=== PATIENT | female | born 1950 | race Caucasian/White ===

== ENCOUNTER 2020-11-11 23:05 | Emergency (ER) | payer MEDICARE ==
[2020-11-11 23:34] VITALS: TEMP 97.9; BMI 28.5
[2020-11-11 23:37] LABS: BASO % 3.4 % (0-2.0); EOS % 1.1 % (0-4.5); HEMATOCRIT 39.9 % (32.4-45.2); HEMOGLOBIN 13.6 GM/dl (10.7-15.3); LYMPH % 20.1 % (8-40); MCH 30.5 pg (25.7-33.7); MCHC 34.1 g/dl (32.0-36.0); MEAN CELL VOLUME 89.6 fl (80-96); MEAN PLT VOLUME 7.7 fl (7.5-11.1); MONO % 6.3 % (3.8-10.2); NEUT % 69.1 % (42.8-82.8); PLATELET COUNT 410 10^3/uL (134-434); RBC 4.45 M/mm3 (3.60-5.2); RDW 12.2 % (11.6-15.6); WHITE BLOOD COUNT 11.6 K/mm3 (4.0-10.8)
[2020-11-11 23:51] LABS: INR 1.03 (0.82-1.09); PROTHROMBIN TIME (PATIENT) 11.5 SEC (10.2-13.0)
[2020-11-12 01:24] LABS: CHLORIDE 105 mmol/L (98-107); SODIUM 140 mmol/L (136-145)
[2020-11-12 01:26] LABS: CALCIUM 9.2 mg/dL (8.5-10.1)
[2020-11-12 01:27] LABS: ALBUMIN 4.4 g/dl (3.4-5.0); ANION GAP 7 MMOL/L (8-16); BLOOD UREA NITROGEN 18.6 mg/dL (7-18); CO2 28 mmol/L (21-32); GLUCOSE,RANDOM 128 mg/dL (74-106)
[2020-11-12 01:30] LABS: CREATININE 0.8 mg/dL (0.55-1.3); SGOT/AST 12 U/L (15-37); SGPT/ALT 27 U/L (13-61)
[2020-11-12 01:32] LABS: BILIRUBIN,TOTAL 0.2 mg/dL (0.2-1); TOT PROT 8.5 g/dl (6.4-8.2)
[2020-11-12 01:33] LABS: ALK PHOS 116 U/L (45-117)
[2020-11-12 01:40] VITALS: BP 168/92; PULSE 88
== END 2020-11-12 01:59 | disposition home or self-care (01) ==
LOC: FER 23:05
DX: R07.9 Chest pain, unspecified (principal); I10 Essential (primary) hypertension
CPT/HCPCS: 36415; 71045-TC-FY; 80053; 82550; 84484; 85025; 85610; 93005; 99285-25; C9803; U0003; U0005